=== PATIENT | male | born 1975 | race Hispanic/Latino ===

== ENCOUNTER 2020-04-10 16:18 | Inpatient (IN) | payer MEDICAID, OTHER ==
[~2020-04-10] VITALS: Ht 182.9 cm; Wt 101.2 kg
[2020-04-10 16:48] LABS: APPEARANCE,URINE Cloudy (CLEAR); BILIRUBIN,URINE Negative (NEGATIVE); COLOR,URINE Yellow (YELLOW); GLUCOSE, URINE (UA) Negative (NEGATIVE); KETONES,URINE Negative (NEGATIVE); LEUKOCYTE ESTERASE ,URINE Negative (NEGATIVE); NITRATE,URINE Negative (NEGATIVE); OCCULT BLOOD,URINE Moderate (NEGATIVE); PROTEIN,URINE >=1000 mg/dL (NEGATIVE); UROBILINOGEN,URINE 0.2 mg/dL (0.2-1.0)
[2020-04-10 16:51] LABS: BASOPHILS % (AUTO) 0.8 % (0.0-5.0); HEMATOCRIT 25.9 % (42-54); LYMPHOCYTES % (AUTO) 23.3 % (21.0-51.0); MEAN CORPUSCULAR HEMOGLOBIN 28.1 pg (27.0-33.0); MEAN CORPUSCULAR HGB CONC 31.3 g/dL (32.0-36.0); MEAN CORPUSCULAR VOLUME 89.9 fL (79-99); MONOCYTES % (AUTO) 7.9 % (3.0-13.0); NEUTROPHILS % (AUTO) 62.6 % (40.0-77.0); PLATELET COUNT (AUTO) 248 K/uL (130-400); RED BLOOD CELL COUNT(AUTO) 2.88 MIL/uL (4.50-6.20); RED CELL DISTRIBUTION WIDTH 14.1 % (11.0-15.5)
[2020-04-10 16:55] LABS: AMPHET/METH SCREEN,URINE NEGATIVE (NEGATIVE); BARBITURATE SCREEN, URINE NEGATIVE (NEGATIVE); BENZODIAZEPINES SCREEN,URINE NEGATIVE (NEGATIVE); CANNABINOID SCREEN,URINE NEGATIVE (NEGATIVE); COCAINE SCREEN,URINE POSITIVE (NEGATIVE); OPIATE SCREEN,URINE NEGATIVE (NEGATIVE); PHENCYCLIDINE SCREEN,URINE NEGATIVE (NEGATIVE)
[2020-04-10 17:18] LABS: BACTERIA,URINE Few /HPF (None Seen)
[2020-04-10 17:19] LABS: AMORPHOUS SEDIMENT,UR Many /LPF (None Seen); MUCUS,URINE Few LPF (None Seen); SQUAMOUS EPITHELIAL CELL,UR Few /HPF (0-2)
[2020-04-10 17:20] LABS: ACETAMINOPHEN < 1 mcg/mL (10-29); ALANINE AMINOTRANSFERASE 17 U/L (12-78); ALBUMIN 3.1 g/dL (3.5-5.0); ALCOHOL, BLOOD < 3 mg/dL (0-10); ASPARTATE AMINOTRANSFERASE 20 U/L (10-37); BILIRUBIN,TOTAL 0.6 mg/dL (0.2-1.0); CARBON DIOXIDE 12 mmol/L (21-32); CHLORIDE 106 mmol/L (101-111); GLOMERULAR FILTR. RATE CALC 6 mL/min (>60); GLUCOSE,RANDOM 103 mg/dL (70-105); SALICYLATE < 2.8 mg/dL (2.8-20.0); SODIUM SERUM 136 mmol/L (136-145); TOTAL PROTEIN, SERUM 8.7 g/dL (6.0-8.3); UREA NITROGEN, BLOOD 62 mg/dL (7-18)
[2020-04-10 17:22] LABS: CREATININE 9.8 mg/dL (0.5-1.5); POTASSIUM 6.1 mmol/L (3.5-5.1)
[2020-04-10] MEDS ORDERED: INSULIN HUMULIN R 100 UNIT/ML 3ML ONE (17:50)
[2020-04-10] MEDS ORDERED: SODIUM BICARB 50MEQ 50ML VIAL 50 ML ONE (17:52)
[2020-04-10] MEDS ORDERED: DEXTROSE 50%-WATER 50 ML DISP.SYRIN IV ONE ×2 (17:52→20:41)
[2020-04-10] MEDS ORDERED: HYDRALAZINE HCL 20 MG/ML VIAL ONE (18:48)
[2020-04-10] MEDS ORDERED: SODIUM POLYSTYRENE SULFONATE 15 GM/60 ML ML ONE (20:42)
[2020-04-11] VITALS (10 sets, daily range): BP systolic 135–174; BP diastolic 79–103
[2020-04-11] MEDS ORDERED: CLONIDINE HCL 0.1 MG TABLET PO PRN (05:00)
[2020-04-11] MEDS ORDERED: DEXTROSE 50%-WATER 50 ML DISP.SYRIN IV PRN (05:00)
[2020-04-11] MEDS ORDERED: GLUCAGON 1MG KIT 1 MG ML IM PRN (05:00)
[2020-04-11 05:48] LABS: BASOPHILS % (AUTO) 0.9 % (0.0-5.0); EOSINOPHILS % (AUTO) 4.7 % (0.0-8.0); HEMATOCRIT 24.3 % (42-54); MEAN CORPUSCULAR HGB CONC 31.3 g/dL (32.0-36.0); MEAN CORPUSCULAR VOLUME 89.7 fL (79-99); MONOCYTES % (AUTO) 6.9 % (3.0-13.0); NEUTROPHILS % (AUTO) 64.1 % (40.0-77.0); PLATELET COUNT (AUTO) 246 K/uL (130-400); RED BLOOD CELL COUNT(AUTO) 2.71 MIL/uL (4.50-6.20); WHITE BLOOD COUNT (AUTO) 7.7 K/uL (4.8-10.8)
[2020-04-11 06:04] LABS: MAGNESIUM 2.1 mg/dL (1.80-2.40)
[2020-04-11 06:05] LABS: CREATININE 9.8 mg/dL (0.5-1.5)
[2020-04-11 14:43] LABS: INR 1.01 (0.85-1.15)
[2020-04-11 14:45] LABS: PARTIAL THROMBOPLASTIN TIME 26.3 SEC (26.3-35.5)
[2020-04-11] MEDS ORDERED: LIDOCAINE HCL 1% MDV 50ML VIAL ONE (14:59)
[2020-04-11] MEDS ORDERED: HEPARIN SODIUM 5000UNIT/ML 1ML VIAL ONE (18:54)
[2020-04-11] MEDS ORDERED: NITROGLYCERIN 0.4 MG SL TAB SL PRN (19:00)
[2020-04-11] MEDS ORDERED: SODIUM CHLORIDE 0.9% 1000ML 1,000 ML IV PRN (19:00)
[2020-04-11] MEDS ORDERED: ACETAMINOPHEN 325 MG TAB PO PRN (19:00)
[2020-04-11] MEDS ORDERED: LIDOCAINE HCL-MPF 1% 2ML VIAL IJ PRN (19:00)
[2020-04-11] MEDS ORDERED: HEPARIN SODIUM 5000UNIT/ML 1ML VIAL IJ PRN (19:00)
[2020-04-11] MEDS ORDERED: 0.9% SODIUM CHLORIDE 1000 ML IV BAG IV PRN (19:00)
[2020-04-11] MEDS: LORAZEPAM 2 MG/ML 1 ML VIAL IVP PRN (22:40)
[2020-04-12 04:05] VITALS: BP 147/88
[2020-04-12] MEDS: LORAZEPAM 2 MG/ML 1 ML VIAL IVP PRN (04:44)
[2020-04-12 06:06] LABS: CREATININE 7.8 mg/dL (0.5-1.5); POTASSIUM 5.3 mmol/L (3.5-5.1)
[2020-04-12 10:18] VITALS: BP 124/73
[2020-04-12] MEDS ORDERED: LORAZEPAM 2 MG TABLET PO PRN (10:45)
[2020-04-12 12:20] VITALS: BP 157/91
[2020-04-12 17:26] VITALS: BP 136/77
[2020-04-12 20:16] VITALS: BP 145/83
[2020-04-12] MEDS: TRAZODONE HCL 50 MG TAB PO SCH (20:41)
[2020-04-12] MEDS: ARIPIPRAZOLE 5 MG TABLET PO SCH (20:41)
[2020-04-13 00:16] VITALS: BP 153/89
[2020-04-13 04:16] VITALS: BP 137/87
[2020-04-13 08:32] VITALS: BP 143/89
[2020-04-13] MEDS: ARIPIPRAZOLE 5 MG TABLET PO SCH ×2 (08:53→20:48)
[2020-04-13 17:38] VITALS: BP 135/74
[2020-04-13 20:00] VITALS: BP 143/74
[2020-04-13] MEDS: TRAZODONE HCL 50 MG TAB PO SCH (20:48)
[2020-04-13 23:32] VITALS: BP 133/80
[2020-04-14 04:00] VITALS: BP 156/94
[2020-04-14 05:43] LABS: CREATININE 7.1 mg/dL (0.5-1.5); MAGNESIUM 1.9 mg/dL (1.80-2.40); POTASSIUM 4.8 mmol/L (3.5-5.1)
[2020-04-14 06:27] LABS: MEAN CORPUSCULAR HGB CONC 31.7 g/dL (32.0-36.0); MEAN CORPUSCULAR VOLUME 88.1 fL (79-99); RED BLOOD CELL COUNT(AUTO) 2.61 MIL/uL (4.50-6.20); RED CELL DISTRIBUTION WIDTH 13.5 % (11.0-15.5); WHITE BLOOD COUNT (AUTO) 6.5 K/uL (4.8-10.8)
[2020-04-14 08:00] VITALS: BP 134/77
[2020-04-14] MEDS: ARIPIPRAZOLE 5 MG TABLET PO SCH (10:34)
[2020-04-14 12:02] VITALS: BP 142/85
[2020-04-15 15:13] LABS: HEPATITIS A ANTIBODY IGM Negative (Negative); HEPATITIS B CORE IGM Negative (Negative); HEPATITIS Bs ANTIGEN SCREEN P Negative (Negative)
== END 2020-04-14 16:10 | disposition home or self-care (01) | DRG 683 ==
LOC: EDH 16:18 → EDHIP 16:19 → OBSVTOIN 16:19 → 3AH 04-11 16:26
PROVIDERS: ADMIT Internal Medicine Infectious Disease; ATTEND Internal Medicine Infectious Disease
PROC: 02H633Z Insertion of Infusion Device into Right Atrium, Percutaneous Approach (ICD-10-PCS; principal; 2020-04-11)
PROC: B5181ZA Fluoroscopy of Superior Vena Cava using Low Osmolar Contrast, Guidance (ICD-10-PCS; 2020-04-11)
PROC: B548ZZA Ultrasonography of Superior Vena Cava, Guidance (ICD-10-PCS; 2020-04-11)
PROC: 5A1D70Z Performance of Urinary Filtration, Intermittent, Less than 6 Hours Per Day (ICD-10-PCS; 2020-04-11)
PROC: 5A1D70Z Performance of Urinary Filtration, Intermittent, Less than 6 Hours Per Day (ICD-10-PCS; 2020-04-12)
PROC: 5A1D70Z Performance of Urinary Filtration, Intermittent, Less than 6 Hours Per Day (ICD-10-PCS; 2020-04-14)
DX: N17.9 Acute kidney failure, unspecified (principal); G93.40 Encephalopathy, unspecified; I12.0 Hypertensive chronic kidney disease with stage 5 chronic kidney disease or end stage renal disease; N18.6 End stage renal disease; F14.10 Cocaine abuse, uncomplicated; F20.9 Schizophrenia, unspecified; F12.10 Cannabis abuse, uncomplicated; E11.22 Type 2 diabetes mellitus with diabetic chronic kidney disease; E66.9 Obesity, unspecified; E87.5 Hyperkalemia; Z91.14 Patient's other noncompliance with medication regimen; Z83.3 Family history of diabetes mellitus; Z91.19 Patient's noncompliance with other medical treatment and regimen; Z99.2 Dependence on renal dialysis; Z68.30 Body mass index [BMI] 30.0-30.9, adult
CPT/HCPCS: 36415; 36556; 77001; 80048; 80053; 80074; 80305; 81001; 82948; 83735; 85025; 85027; 85610; 85730; 90935; 93005; 99291; C1752; G0378; G0481; J0360; J1644; J1815; J2060; J3490; J7070

== ENCOUNTER 2020-09-01 10:30 | Observation (INO) | payer MEDICAID ==
[~2020-09-01] VITALS: Ht 185.4 cm; Wt 104.3 kg
[2020-09-01 10:47] VITALS: BP 159/87
[2020-09-01 11:12] LABS: BASOPHILS % (AUTO) 0.6 % (0.0-5.0); EOSINOPHILS % (AUTO) 3.8 % (0.0-8.0); HEMATOCRIT 29.1 % (42-54); LYMPHOCYTES % (AUTO) 23.2 % (21.0-51.0); MEAN CORPUSCULAR HEMOGLOBIN 28.9 pg (27.0-33.0); MEAN CORPUSCULAR HGB CONC 31.6 g/dL (32.0-36.0); MEAN CORPUSCULAR VOLUME 91.5 fL (79-99); MONOCYTES % (AUTO) 5.3 % (3.0-13.0); NEUTROPHILS % (AUTO) 66.6 % (40.0-77.0); NUCLEATED RED BLOOD CELLS 0.5 % (0.0-0.19); PLATELET COUNT (AUTO) 218 K/uL (130-400); RED BLOOD CELL COUNT(AUTO) 3.18 MIL/uL (4.50-6.20); RED CELL DISTRIBUTION WIDTH 15.2 % (11.0-15.5); WHITE BLOOD COUNT (AUTO) 7.9 K/uL (4.8-10.8)
[2020-09-01 11:32] LABS: ALBUMIN 3.4 g/dL (3.5-5.0); BILIRUBIN,TOTAL 0.5 mg/dL (0.2-1.0); POTASSIUM 5.6 mmol/L (3.5-5.1)
[2020-09-01 11:35] LABS: CREATININE 12.3 mg/dL (0.5-1.5)
[2020-09-01 12:11] LABS: TOTAL PROTEIN, SERUM 7.8 g/dL (6.0-8.3)
[2020-09-01] MEDS ORDERED: DEXTROSE 5 % AND 0.9 % NACL 1,000 ML IV ONE (15:02)
[2020-09-01] MEDS ORDERED: DIPHENHYDRAMINE HCL 25 MG CAPSULE ONE (15:12)
[2020-09-01 15:20] VITALS: BP 165/74
== END 2020-09-01 16:30 | disposition left against medical advice (07) ==
LOC: EDH 10:30 → EDBD 10:30 → EDHIP 10:31
PROVIDERS: ADMIT Internal Medicine Infectious Disease; ATTEND Internal Medicine Infectious Disease
DX: K85.90 Acute pancreatitis without necrosis or infection, unspecified (principal); I12.9 Hypertensive chronic kidney disease with stage 1 through stage 4 chronic kidney disease, or unspecified chronic kidney disease; N18.9 Chronic kidney disease, unspecified; E11.22 Type 2 diabetes mellitus with diabetic chronic kidney disease; E87.5 Hyperkalemia; F20.9 Schizophrenia, unspecified; R10.10 Upper abdominal pain, unspecified; M79.671 Pain in right foot; R06.02 Shortness of breath; Z79.899 Other long term (current) drug therapy; Z79.4 Long term (current) use of insulin
CPT/HCPCS: 36415; 74176; 76705; 80053; 82550 ×2; 83690; 84484 ×2; 85025; 93005; 99285; G0378 ×2; J3490; Q0163; J7042

== ENCOUNTER 2020-12-17 05:07 | Emergency (ER) | payer MEDICAID ==
[~2020-12-17] VITALS: Ht 185.4 cm; Wt 104.3 kg
[2020-12-17] MEDS ORDERED: HYDR25CA PO (05:43)
[2020-12-17] MEDS ORDERED: DiphenhydrAMINE HCL 50 MG/ML VIAL ONE (05:51)
[2020-12-17 05:57] VITALS: BP 151/89
[2020-12-17] MEDS ORDERED: DiphenhydrAMINE HCL 50 MG/ML VIAL IM ONE (06:00)
== END 2020-12-17 06:02 | disposition home or self-care (01) ==
LOC: EDH 05:07
DX: F41.9 Anxiety disorder, unspecified (principal); F45.8 Other somatoform disorders; I12.0 Hypertensive chronic kidney disease with stage 5 chronic kidney disease or end stage renal disease; E11.22 Type 2 diabetes mellitus with diabetic chronic kidney disease; N18.6 End stage renal disease; Z99.2 Dependence on renal dialysis
CPT/HCPCS: 96372; 99283; J1200

== ENCOUNTER 2021-01-10 08:02 | Inpatient (IN) | payer MEDICAID ==
[~2021-01-10] VITALS: Ht 170.2 cm; Wt 98.9 kg
[2021-01-10] VITALS (58 sets, daily range): BP systolic 120–187; BP diastolic 62–119
[~2021-01-10 08:02] MED LIST: HYDR25CA PO
[2021-01-10] MEDS ORDERED: AMIODARONE 150MG VIAL ONE (08:13)
[2021-01-10 08:18] LABS: ABG BASE EXCESS -23.7 mmol/L (-2.0-3.0); ABG HCO3 9.5 mmol/L (21.0-28.0); ABG OXYGEN SATURATION 72.7 % (95.0-99.0); ABG PCO2 51 mmHg (35-48)
[2021-01-10] MEDS ORDERED: NOREPINEPHRIN 4MG/NS 250ML 250 ML IV ONE (08:24)
[2021-01-10] MEDS ORDERED: AMIODARONE 540 MG/D5W 300ML (0.5MG/MIN) IV SCH ×2 (08:30)
[2021-01-10] MEDS ORDERED: AMIODARONE 150MG VIAL 150 MG in DEXTROSE 5%-WATER 100 ML IV SCH (08:30)
[2021-01-10] MEDS ORDERED: AMIODARONE 900MG VIAL 360 MG in DEXTROSE 5%-WATER 200 ML IV SCH (08:30)
[2021-01-10] MEDS ORDERED: PROPOFOL 1000 MG/100 ML 100 ML IV ONE ×2 (08:33→15:24)
[2021-01-10 08:45] LABS: BASOPHILS % (AUTO) 0.2 % (0.0-5.0); EOSINOPHILS % (AUTO) 0.3 % (0.0-8.0); HEMATOCRIT 37.2 % (42-54); LYMPHOCYTES % (AUTO) 7.9 % (21.0-51.0); MEAN CORPUSCULAR HEMOGLOBIN 28.3 pg (27.0-33.0); MEAN CORPUSCULAR HGB CONC 30.9 g/dL (32.0-36.0); MEAN CORPUSCULAR VOLUME 91.6 fL (79-99); MONOCYTES % (AUTO) 2.4 % (3.0-13.0); NEUTROPHILS % (AUTO) 88.7 % (40.0-77.0); NUCLEATED RED BLOOD CELLS 0.6 % (0.0-0.19); PLATELET COUNT (AUTO) 240 K/uL (130-400); RED BLOOD CELL COUNT(AUTO) 4.06 MIL/uL (4.50-6.20); RED CELL DISTRIBUTION WIDTH 18.1 % (11.0-15.5); WHITE BLOOD COUNT (AUTO) 8.8 K/uL (4.8-10.8)
[2021-01-10] MEDS ORDERED: SODIUM BICARB 50MEQ 50ML VIAL 100 ML ONE (08:46)
[2021-01-10] MEDS ORDERED: DEXTROSE 50%-WATER 50 ML DISP.SYRIN IV ONE ×2 (08:47→12:25)
[2021-01-10] MEDS ORDERED: INSULIN HUMULIN R 100 UNIT/ML 3ML ONE (08:47)
[2021-01-10] MEDS ORDERED: KAYEXALATE 15GM/60ML ONE (08:48)
[2021-01-10 08:59] LABS: B-TYPE NATRIURETIC PEPTIDE 1370 pg/mL (0-100)
[2021-01-10] MEDS: SODIUM BICARB 8.4% 50ML SYRINGE IVP SCH (09:00)
[2021-01-10] MEDS ORDERED: PHARMACY COMMUNICATION MISC SCH ×2 (09:00→09:30)
[2021-01-10 09:20] LABS: ALBUMIN 3.5 g/dL (3.5-5.0); BILIRUBIN,TOTAL 1.1 mg/dL (0.2-1.0); MAGNESIUM 3.4 mg/dL (1.80-2.40); TOTAL PROTEIN, SERUM 7.2 g/dL (6.0-8.3)
[2021-01-10 09:25] LABS: CREATININE 19.2 mg/dL (0.5-1.5); POTASSIUM 8.9 mmol/L (3.5-5.1)
[2021-01-10] MEDS: NA ZIRCON CYCLOSIL(LOKELMA 10GM) PO NR (09:30)
[2021-01-10] MEDS: MIDAZOLAM 100MG-0.9% NS 100ML 100ML BAG IV SCH (09:30)
[2021-01-10] MEDS ORDERED: FENTANYL 2500MCG+NS 250ML IV.SOLN IV SCH (09:30)
[2021-01-10] MEDS ORDERED: VANCOMYCIN PROTOCOL PER PHARMACY IV SCH (09:30)
[2021-01-10] MEDS ORDERED: VASOPRESSIN 40 UNITS in 0.9%NACL 50ML 40 ML IV SCH (09:30)
[2021-01-10] MEDS ORDERED: 0.9%NACL 1000ML 2,000 ML IV ONE (09:49)
[2021-01-10] MEDS ORDERED: COMPOUND IV REFRIGERATED 1 EACH IVSOLN MISC PRN (10:00)
[2021-01-10] MEDS: ZOSYN 3.375GM+NS 50ML 50 ML IV SCH ×2 (10:00→21:42)
[2021-01-10] MEDS ORDERED: VANCOMYCIN 1.25GM/NS 250ML IVPB SCH ×2 (10:00)
[2021-01-10 10:51] LABS: ABG HCO3 15.8 mmol/L (21.0-28.0); ABG OXYGEN SATURATION 82.9 % (95.0-99.0); ABG PCO2 53 mmHg (35-48)
[2021-01-10] MEDS: NACL 23.4% (4MEQ/ML) 30ML VIAL 154 MEQ in DEXTROSE 10%-WATER 961.5 ML IV SCH (13:00)
[2021-01-10 13:02] LABS: ABG BASE EXCESS -3.4 mmol/L (-2.0-3.0); ABG OXYGEN SATURATION 79.3 % (95.0-99.0); ABG PCO2 46 mmHg (35-48)
[2021-01-10] MEDS ORDERED: HEPARIN 5,000 UNIT VIAL ONE (13:23)
[2021-01-10] MEDS ORDERED: HEPARIN 5,000 UNIT VIAL SQ PRN (13:30)
[2021-01-10 15:52] LABS: MAGNESIUM 2.5 mg/dL (1.80-2.40); PHOSPHORUS 11.1 mg/dL (2.5-4.9); POTASSIUM 5.7 mmol/L (3.5-5.1)
[2021-01-10 15:56] LABS: CREATININE 12.6 mg/dL (0.5-1.5)
[2021-01-10 18:39] LABS: ABG BASE EXCESS -5.6 mmol/L (-2.0-3.0); ABG HCO3 16.8 mmol/L (21.0-28.0); ABG OXYGEN SATURATION 99.5 % (95.0-99.0); ABG PCO2 24 mmHg (35-48)
[2021-01-11] VITALS (23 sets, daily range): BP systolic 108–137; BP diastolic 72–89
[2021-01-11] MEDS: MIDAZOLAM 100MG-0.9% NS 100ML 100ML BAG IV SCH (02:48)
[2021-01-11 05:41] LABS: INR 1.31 (0.85-1.15); PROTHROMBIN TIME 13.9 SEC (9.6-11.6)
[2021-01-11 05:42] LABS: PARTIAL THROMBOPLASTIN TIME 33.3 SEC (26.3-35.5)
[2021-01-11 06:27] LABS: BASOPHILS % (AUTO) 0.6 % (0.0-5.0); EOSINOPHILS % (AUTO) 1.8 % (0.0-8.0); HEMATOCRIT 33.9 % (42-54); LYMPHOCYTES % (AUTO) 8.9 % (21.0-51.0); MEAN CORPUSCULAR HEMOGLOBIN 28.6 pg (27.0-33.0); MEAN CORPUSCULAR HGB CONC 31.9 g/dL (32.0-36.0); MEAN CORPUSCULAR VOLUME 89.9 fL (79-99); MONOCYTES % (AUTO) 4.2 % (3.0-13.0); PLATELET COUNT (AUTO) 171 K/uL (130-400); RED BLOOD CELL COUNT(AUTO) 3.77 MIL/uL (4.50-6.20); WHITE BLOOD COUNT (AUTO) 6.7 K/uL (4.8-10.8)
[2021-01-11 06:36] LABS: ALBUMIN 2.8 g/dL (3.5-5.0); BILIRUBIN,TOTAL 0.8 mg/dL (0.2-1.0); POTASSIUM 5.1 mmol/L (3.5-5.1)
[2021-01-11 06:40] LABS: CREATININE 14.1 mg/dL (0.5-1.5)
[2021-01-11] MEDS: NA ZIRCON CYCLOSIL(LOKELMA 10GM) PO NR (07:18)
[2021-01-11] MEDS: SODIUM BICARB 8.4% 50ML SYRINGE IVP SCH (07:18)
[2021-01-11] MEDS: NACL 23.4% (4MEQ/ML) 30ML VIAL 154 MEQ in DEXTROSE 10%-WATER 961.5 ML IV SCH (10:02)
[2021-01-11] MEDS: ZOSYN 3.375GM+NS 50ML 50 ML IV SCH ×2 (10:04→21:43)
[2021-01-11] MEDS ORDERED: DEXTROSE 50%-WATER 50 ML DISP.SYRIN IV ONE (10:26)
[2021-01-11] MEDS: DEXTROSE 50%-WATER 50 ML DISP.SYRIN IV PRN (10:28)
[2021-01-11 11:09] LABS: ABG BASE EXCESS -6.2 mmol/L (-2.0-3.0); ABG HCO3 18.9 mmol/L (21.0-28.0); ABG OXYGEN SATURATION 95.5 % (95.0-99.0); ABG PCO2 36 mmHg (35-48)
[2021-01-11 12:24] LABS: APPEARANCE,URINE Clear (CLEAR); BILIRUBIN,URINE Negative (NEGATIVE); COLOR,URINE Yellow (YELLOW); GLUCOSE, URINE (UA) TRACE mg/dL (NEGATIVE); KETONES,URINE Negative (NEGATIVE); LEUKOCYTE ESTERASE ,URINE Moderate (NEGATIVE); NITRATE,URINE Negative (NEGATIVE); OCCULT BLOOD,URINE Moderate (NEGATIVE); PROTEIN,URINE >=1000 mg/dL (NEGATIVE); UROBILINOGEN,URINE 0.2 mg/dL (0.2-1.0)
[2021-01-11 12:32] LABS: AMPHET/METH SCREEN,URINE NEGATIVE (NEGATIVE); BARBITURATE SCREEN, URINE NEGATIVE (NEGATIVE); BENZODIAZEPINES SCREEN,URINE POSITIVE (NEGATIVE); CANNABINOID SCREEN,URINE NEGATIVE (NEGATIVE); COCAINE SCREEN,URINE POSITIVE (NEGATIVE); OPIATE SCREEN,URINE NEGATIVE (NEGATIVE); PHENCYCLIDINE SCREEN,URINE NEGATIVE (NEGATIVE)
[2021-01-11 12:42] LABS: BACTERIA,URINE Many /HPF (None Seen); WBC,URINE 51-100 /HPF (0-1)
[2021-01-11 13:09] LABS: HEPATITIS Bs ANTIGEN SCREEN P Negative (Negative)
[2021-01-11] MEDS: HEPARIN 5,000 UNIT VIAL SQ SCH ×2 (13:37→21:44)
[2021-01-11] MEDS ORDERED: PROPOFOL 1000 MG/100 ML IV PRN (15:30)
[2021-01-12] VITALS (35 sets, daily range): BP systolic 121–153; BP diastolic 75–97
[2021-01-12 04:29] LABS: BASOPHILS % (AUTO) 0.6 % (0.0-5.0); EOSINOPHILS % (AUTO) 2.4 % (0.0-8.0); HEMATOCRIT 35.1 % (42-54); LYMPHOCYTES % (AUTO) 14.8 % (21.0-51.0); MEAN CORPUSCULAR HEMOGLOBIN 28.1 pg (27.0-33.0); MEAN CORPUSCULAR HGB CONC 30.8 g/dL (32.0-36.0); MEAN CORPUSCULAR VOLUME 91.2 fL (79-99); MONOCYTES % (AUTO) 6.1 % (3.0-13.0); NEUTROPHILS % (AUTO) 75.5 % (40.0-77.0); PLATELET COUNT (AUTO) 170 K/uL (130-400); RED BLOOD CELL COUNT(AUTO) 3.85 MIL/uL (4.50-6.20); WHITE BLOOD COUNT (AUTO) 7.1 K/uL (4.8-10.8)
[2021-01-12 04:50] LABS: ALBUMIN 2.7 g/dL (3.5-5.0); BILIRUBIN,TOTAL 0.7 mg/dL (0.2-1.0); MAGNESIUM 2.5 mg/dL (1.80-2.40); POTASSIUM 5.5 mmol/L (3.5-5.1); TOTAL PROTEIN, SERUM 6.2 g/dL (6.0-8.3)
[2021-01-12 04:54] LABS: CREATININE 15.3 mg/dL (0.5-1.5)
[2021-01-12] MEDS: NACL 23.4% (4MEQ/ML) 30ML VIAL 154 MEQ in DEXTROSE 10%-WATER 961.5 ML IV SCH ×2 (05:01→19:33)
[2021-01-12] MEDS: HEPARIN 5,000 UNIT VIAL SQ SCH ×3 (05:04→20:57)
[2021-01-12 05:12] LABS: PHOSPHORUS 12.4 mg/dL (2.5-4.9)
[2021-01-12 06:26] LABS: ABG BASE EXCESS -5.7 mmol/L (-2.0-3.0); ABG HCO3 18.2 mmol/L (21.0-28.0); ABG OXYGEN SATURATION 98.2 % (95.0-99.0); ABG PCO2 31 mmHg (35-48)
[2021-01-12] MEDS: PANTOPRAZOLE 40 MG/VIAL IVP SCH (08:33)
[2021-01-12] MEDS: SEVELAMER HCL 800 MG TABLET PO SCH ×3 (08:33→17:06)
[2021-01-12] MEDS: DEXMEDETOMIDINE 400MCG/NS100ML IV SCH ×3 (08:34→20:59)
[2021-01-12] MEDS ORDERED: NOREPINEPHRINE 8MG/NS 250ML PREMIX IV SCH (09:00)
[2021-01-12] MEDS ORDERED: 0.9%NACL 1000ML 2,000 ML IV ONE (09:30)
[2021-01-12] MEDS: METOCLOPRAMIDE 10 MG/2 ML VIAL IVP SCH ×2 (13:44→20:55)
[2021-01-13] VITALS (21 sets, daily range): BP systolic 142–179; BP diastolic 88–119
[2021-01-13] MEDS: DEXMEDETOMIDINE 400MCG/NS100ML IV SCH ×3 (01:19→20:13)
[2021-01-13 05:30] LABS: BASOPHILS % (AUTO) 0.6 % (0.0-5.0); EOSINOPHILS % (AUTO) 1.5 % (0.0-8.0); HEMATOCRIT 36.2 % (42-54); LYMPHOCYTES % (AUTO) 13.2 % (21.0-51.0); MEAN CORPUSCULAR HEMOGLOBIN 27.8 pg (27.0-33.0); MEAN CORPUSCULAR HGB CONC 30.7 g/dL (32.0-36.0); MEAN CORPUSCULAR VOLUME 90.5 fL (79-99); MONOCYTES % (AUTO) 6.8 % (3.0-13.0); NEUTROPHILS % (AUTO) 77.5 % (40.0-77.0); PLATELET COUNT (AUTO) 160 K/uL (130-400); RED CELL DISTRIBUTION WIDTH 17.4 % (11.0-15.5); WHITE BLOOD COUNT (AUTO) 6.9 K/uL (4.8-10.8)
[2021-01-13] MEDS: METOCLOPRAMIDE 10 MG/2 ML VIAL IVP SCH (05:31)
[2021-01-13] MEDS: HEPARIN 5,000 UNIT VIAL SQ SCH ×3 (05:33→20:14)
[2021-01-13 05:47] LABS: ALBUMIN 2.8 g/dL (3.5-5.0); BILIRUBIN,TOTAL 0.7 mg/dL (0.2-1.0); POTASSIUM 4.8 mmol/L (3.5-5.1); TOTAL PROTEIN, SERUM 6.8 g/dL (6.0-8.3)
[2021-01-13 06:00] LABS: CREATININE 11.6 mg/dL (0.5-1.5)
[2021-01-13] MEDS: SEVELAMER HCL 800 MG TABLET PO SCH ×3 (08:00→17:00)
[2021-01-13] MEDS ORDERED: METOCLOPRAMIDE 10 MG/2 ML VIAL IVP PRN (09:00)
[2021-01-13 09:11] LABS: THYROID STIMULATING HORMONE 3.55 uIU/mL (0.36-3.74)
[2021-01-13] MEDS: PANTOPRAZOLE 40 MG/VIAL IVP SCH (10:47)
[2021-01-13] MEDS: ASPIRIN 81 MG EC TAB PO SCH (10:47)
[2021-01-13] MEDS: METOPROLOL TARTRATE 25 MG TAB PO SCH ×2 (10:48→20:14)
[2021-01-13] MEDS: ATORVASTATIN 40 MG TABLET PO SCH (20:14)
[2021-01-14] VITALS (49 sets, daily range): BP systolic 143–194; BP diastolic 82–119
[2021-01-14] MEDS: DEXMEDETOMIDINE 400MCG/NS100ML IV SCH ×2 (04:39→20:22)
[2021-01-14] MEDS: HEPARIN 5,000 UNIT VIAL SQ SCH ×3 (04:42→21:33)
[2021-01-14 06:19] LABS: BASOPHILS % (AUTO) 0.4 % (0.0-5.0); EOSINOPHILS % (AUTO) 2.2 % (0.0-8.0); HEMATOCRIT 36.3 % (42-54); LYMPHOCYTES % (AUTO) 16.7 % (21.0-51.0); MEAN CORPUSCULAR HEMOGLOBIN 27.4 pg (27.0-33.0); MEAN CORPUSCULAR HGB CONC 29.8 g/dL (32.0-36.0); MEAN CORPUSCULAR VOLUME 92.1 fL (79-99); MONOCYTES % (AUTO) 8.1 % (3.0-13.0); NEUTROPHILS % (AUTO) 71.9 % (40.0-77.0); PLATELET COUNT (AUTO) 169 K/uL (130-400); RED BLOOD CELL COUNT(AUTO) 3.94 MIL/uL (4.50-6.20); WHITE BLOOD COUNT (AUTO) 7.3 K/uL (4.8-10.8)
[2021-01-14 06:30] LABS: ALBUMIN 2.8 g/dL (3.5-5.0); BILIRUBIN,TOTAL 0.6 mg/dL (0.2-1.0); POTASSIUM 4.9 mmol/L (3.5-5.1); TOTAL PROTEIN, SERUM 6.9 g/dL (6.0-8.3)
[2021-01-14 06:32] LABS: CREATININE 13.5 mg/dL (0.5-1.5)
[2021-01-14] MEDS: PANTOPRAZOLE 40 MG/VIAL IVP SCH (08:33)
[2021-01-14] MEDS: ASPIRIN 81 MG EC TAB PO SCH (08:33)
[2021-01-14] MEDS: SEVELAMER HCL 800 MG TABLET PO SCH ×3 (08:33→17:00)
[2021-01-14] MEDS: METOPROLOL TARTRATE 25 MG TAB PO SCH ×2 (08:33→21:00)
[2021-01-14] MEDS ORDERED: RACEPINEPHRINE HCL 2.25% 0.5 ML NEB SOLN ONE (09:12)
[2021-01-14] MEDS ORDERED: RACEPINEPHRINE HCL 2.25% 0.5 ML NEB SOLN NEB SCH (09:30)
[2021-01-14] MEDS ORDERED: IPRATROPIUM/ALBUTEROL SULFATE 3 ML SOLUTION IH PRN (09:30)
[2021-01-14] MEDS ORDERED: LABETALOL 20MG SYG IV ONE (12:00)
[2021-01-14] MEDS: ATORVASTATIN 40 MG TABLET PO SCH (21:00)
[2021-01-14] MEDS: DEXTROSE 50%-WATER 50 ML DISP.SYRIN IV PRN (21:32)
[2021-01-14] MEDS ORDERED: PHARMACY COMMUNICATION MISC SCH ×2 (22:00)
[2021-01-14] MEDS: NACL 23.4% (4MEQ/ML) 30ML VIAL 154 MEQ in DEXTROSE 10%-WATER 961.5 ML IV SCH (22:08)
[2021-01-15] VITALS (24 sets, daily range): BP systolic 133–172; BP diastolic 78–111
[2021-01-15] MEDS: DEXMEDETOMIDINE 400MCG/NS100ML IV SCH (03:50)
[2021-01-15 06:18] LABS: BASOPHILS % (AUTO) 0.5 % (0.0-5.0); EOSINOPHILS % (AUTO) 4.5 % (0.0-8.0); HEMATOCRIT 36.4 % (42-54); LYMPHOCYTES % (AUTO) 13.8 % (21.0-51.0); MEAN CORPUSCULAR HEMOGLOBIN 27.9 pg (27.0-33.0); MEAN CORPUSCULAR HGB CONC 30.8 g/dL (32.0-36.0); MEAN CORPUSCULAR VOLUME 90.5 fL (79-99); MONOCYTES % (AUTO) 8.7 % (3.0-13.0); NEUTROPHILS % (AUTO) 72.3 % (40.0-77.0); PLATELET COUNT (AUTO) 166 K/uL (130-400); RED BLOOD CELL COUNT(AUTO) 4.02 MIL/uL (4.50-6.20); RED CELL DISTRIBUTION WIDTH 16.3 % (11.0-15.5)
[2021-01-15 06:29] LABS: POTASSIUM 4.1 mmol/L (3.5-5.1)
[2021-01-15 06:31] LABS: CREATININE 10.8 mg/dL (0.5-1.5)
[2021-01-15] MEDS: SEVELAMER HCL 800 MG TABLET PO SCH ×3 (08:00→14:41)
[2021-01-15] MEDS: PANTOPRAZOLE 40 MG/VIAL IVP SCH (08:38)
[2021-01-15] MEDS ORDERED: HEPARIN 5,000 UNIT VIAL SQ SCH (09:00)
[2021-01-15] MEDS: ASPIRIN 81 MG EC TAB PO SCH (14:45)
[2021-01-15] MEDS: LOSARTAN 25 MG TABLET PO SCH (14:46)
[2021-01-15] MEDS ORDERED: PHARMACY COMMUNICATION MISC PRN (15:00)
[2021-01-15] MEDS: CHLORDIAZEPOXIDE HCL 25 MG CAP PO PRN ×2 (15:59→20:17)
[2021-01-15] MEDS: HEPARIN 5,000 UNIT VIAL SQ SCH (16:16)
[2021-01-15] MEDS: NACL 23.4% (4MEQ/ML) 30ML VIAL 154 MEQ in DEXTROSE 10%-WATER 961.5 ML IV SCH (16:20)
[2021-01-15] MEDS: ATORVASTATIN 40 MG TABLET PO SCH (20:17)
[2021-01-15] MEDS: BALSAM PERU/CASTOR OIL 60 GM TUBE TP SCH (20:17)
[2021-01-15] MEDS ORDERED: METOPROLOL TARTRATE 25 MG TAB PO SCH (21:00)
[2021-01-16] VITALS (37 sets, daily range): BP systolic 116–167; BP diastolic 66–111
[2021-01-16] MEDS: HEPARIN 5,000 UNIT VIAL SQ SCH ×3 (01:40→12:50)
[2021-01-16 04:26] LABS: BASOPHILS % (AUTO) 0.6 % (0.0-5.0); EOSINOPHILS % (AUTO) 4.7 % (0.0-8.0); HEMATOCRIT 37.7 % (42-54); LYMPHOCYTES % (AUTO) 18.2 % (21.0-51.0); MEAN CORPUSCULAR HEMOGLOBIN 28.1 pg (27.0-33.0); MEAN CORPUSCULAR HGB CONC 30.2 g/dL (32.0-36.0); MEAN CORPUSCULAR VOLUME 93.1 fL (79-99); MONOCYTES % (AUTO) 9.7 % (3.0-13.0); NEUTROPHILS % (AUTO) 66.7 % (40.0-77.0); PLATELET COUNT (AUTO) 191 K/uL (130-400); RED BLOOD CELL COUNT(AUTO) 4.05 MIL/uL (4.50-6.20); RED CELL DISTRIBUTION WIDTH 16.4 % (11.0-15.5); WHITE BLOOD COUNT (AUTO) 6.8 K/uL (4.8-10.8)
[2021-01-16 04:43] LABS: ALBUMIN 2.9 g/dL (3.5-5.0); BILIRUBIN,TOTAL 0.7 mg/dL (0.2-1.0); TOTAL PROTEIN, SERUM 7.1 g/dL (6.0-8.3)
[2021-01-16 04:46] LABS: CREATININE 12.7 mg/dL (0.5-1.5)
[2021-01-16] MEDS ORDERED: PHARMACY COMMUNICATION MISC SCH (06:00)
[2021-01-16] MEDS: SEVELAMER HCL 800 MG TABLET PO SCH ×3 (08:00→16:33)
[2021-01-16] MEDS ORDERED: PANTOPRAZOLE 40 MG TAB DR PO SCH (09:00)
[2021-01-16] MEDS ORDERED: METOPROLOL TARTRATE 25 MG TAB PO SCH (09:00)
[2021-01-16] MEDS ORDERED: 0.9%NACL 1000ML 2,000 ML IV ONE (09:06)
[2021-01-16] MEDS: LANSOPRAZOLE 15 MG SOLU TAB NG SCH (09:34)
[2021-01-16] MEDS: THIAMINE HCL 100 MG TABLET PO SCH ×2 (09:34→21:26)
[2021-01-16] MEDS: DOCUSATE SODIUM 100 MG CAP PO SCH (09:35)
[2021-01-16] MEDS: SENNOSIDES 8.6 MG TABLET PO SCH (09:35)
[2021-01-16] MEDS: ASPIRIN 81 MG EC TAB PO SCH (09:35)
[2021-01-16] MEDS: POLYETHYLENE GLYCOL 3350 17 GM POWD.PACK PO SCH (09:35)
[2021-01-16] MEDS: BALSAM PERU/CASTOR OIL 60 GM TUBE TP SCH ×2 (09:44→21:29)
[2021-01-16] MEDS: NACL 23.4% (4MEQ/ML) 30ML VIAL 154 MEQ in DEXTROSE 10%-WATER 961.5 ML IV SCH (12:06)
[2021-01-16] MEDS: LOSARTAN 25 MG TABLET PO SCH (12:58)
[2021-01-16] MEDS: CARVEDILOL 12.5 MG TABLET PO SCH ×2 (12:59→21:25)
[2021-01-16] MEDS: ATORVASTATIN 40 MG TABLET PO SCH (21:25)
[2021-01-17] VITALS (17 sets, daily range): BP systolic 114–153; BP diastolic 66–101
[2021-01-17] MEDS: HEPARIN 5,000 UNIT VIAL SQ SCH ×3 (01:57→16:42)
[2021-01-17 03:58] LABS: BASOPHILS % (AUTO) 0.3 % (0.0-5.0); EOSINOPHILS % (AUTO) 3.8 % (0.0-8.0); HEMATOCRIT 39.7 % (42-54); LYMPHOCYTES % (AUTO) 12.3 % (21.0-51.0); MEAN CORPUSCULAR HEMOGLOBIN 27.1 pg (27.0-33.0); MEAN CORPUSCULAR VOLUME 90.4 fL (79-99); MONOCYTES % (AUTO) 7.3 % (3.0-13.0); PLATELET COUNT (AUTO) 215 K/uL (130-400); RED BLOOD CELL COUNT(AUTO) 4.39 MIL/uL (4.50-6.20); RED CELL DISTRIBUTION WIDTH 16.1 % (11.0-15.5); WHITE BLOOD COUNT (AUTO) 9.1 K/uL (4.8-10.8)
[2021-01-17 04:19] LABS: BILIRUBIN,TOTAL 0.7 mg/dL (0.2-1.0); POTASSIUM 4.1 mmol/L (3.5-5.1); TOTAL PROTEIN, SERUM 7.5 g/dL (6.0-8.3)
[2021-01-17] MEDS: NACL 23.4% (4MEQ/ML) 30ML VIAL 154 MEQ in DEXTROSE 10%-WATER 961.5 ML IV SCH (04:38)
[2021-01-17] MEDS: SEVELAMER HCL 800 MG TABLET PO SCH ×3 (08:00→17:00)
[2021-01-17] MEDS: LANSOPRAZOLE 15 MG SOLU TAB NG SCH (09:00)
[2021-01-17] MEDS: ASPIRIN 81 MG EC TAB PO SCH (09:00)
[2021-01-17] MEDS: POLYETHYLENE GLYCOL 3350 17 GM POWD.PACK PO SCH (09:00)
[2021-01-17] MEDS: SENNOSIDES 8.6 MG TABLET PO SCH (09:00)
[2021-01-17] MEDS: DOCUSATE SODIUM 100 MG CAP PO SCH (09:00)
[2021-01-17] MEDS: CARVEDILOL 12.5 MG TABLET PO SCH ×2 (16:38→19:55)
[2021-01-17] MEDS: THIAMINE HCL 100 MG TABLET PO SCH ×2 (16:39→20:01)
[2021-01-17] MEDS: BALSAM PERU/CASTOR OIL 60 GM TUBE TP SCH ×2 (16:40→21:00)
[2021-01-17] MEDS: ATORVASTATIN 40 MG TABLET PO SCH (19:55)
[2021-01-17] MEDS ORDERED: HYDRALAZINE HCL 10 MG TABLET PO SCH (21:00)
[2021-01-17] MEDS: CHLORDIAZEPOXIDE HCL 25 MG CAP PO PRN (21:54)
[2021-01-17] MEDS: LORAZEPAM 2 MG/ML 1 ML VIAL IVP PRN ×2 (22:34→22:54)
[2021-01-18] VITALS (9 sets, daily range): BP systolic 124–150; BP diastolic 72–87
[2021-01-18] MEDS: CHLORDIAZEPOXIDE HCL 25 MG CAP PO PRN (00:06)
[2021-01-18] MEDS: LORAZEPAM 2 MG/ML 1 ML VIAL IVP PRN ×4 (00:10→15:50)
[2021-01-18] MEDS ORDERED: HALOPERIDOL INJ 5 MG/ML VIAL IV SCH (00:30)
[2021-01-18] MEDS ORDERED: HALOPERIDOL INJ 5 MG/ML VIAL ONE (00:37)
[2021-01-18] MEDS: HEPARIN 5,000 UNIT VIAL SQ SCH ×3 (02:10→17:00)
[2021-01-18 07:24] LABS: MAGNESIUM 2.5 mg/dL (1.80-2.40); POTASSIUM 4.4 mmol/L (3.5-5.1)
[2021-01-18 07:28] LABS: CREATININE 12.6 mg/dL (0.5-1.5)
[2021-01-18] MEDS ORDERED: INSULIN HUMULIN R 100 UNIT/ML 3ML SQ SCH (07:30)
[2021-01-18] MEDS: SEVELAMER HCL 800 MG TABLET PO SCH ×3 (08:00→16:02)
[2021-01-18] MEDS: BALSAM PERU/CASTOR OIL 60 GM TUBE TP SCH ×2 (09:00→21:00)
[2021-01-18] MEDS: DOCUSATE SODIUM 100 MG CAP PO SCH (09:00)
[2021-01-18] MEDS: PANTOPRAZOLE 40 MG TAB DR PO SCH (09:00)
[2021-01-18] MEDS: SENNOSIDES 8.6 MG TABLET PO SCH (09:00)
[2021-01-18] MEDS: POLYETHYLENE GLYCOL 3350 17 GM POWD.PACK PO SCH (09:00)
[2021-01-18] MEDS ORDERED: LISINOPRIL 20 MG TABLET PO SCH (09:00)
[2021-01-18] MEDS: ASPIRIN 81 MG EC TAB PO SCH (09:27)
[2021-01-18] MEDS: ISOSORBIDE MONO 30MG SR TAB PO SCH (09:27)
[2021-01-18] MEDS: CLONAZEPAM 1MG TAB PO SCH ×2 (09:28→19:25)
[2021-01-18] MEDS: CARVEDILOL 12.5 MG TABLET PO SCH ×2 (09:28→19:27)
[2021-01-18] MEDS: THIAMINE HCL 100 MG TABLET PO SCH ×2 (09:30→19:26)
[2021-01-18] MEDS ORDERED: LORAZEPAM 2 MG/ML 1 ML VIAL IM ONE (18:00)
[2021-01-18] MEDS: ATORVASTATIN 40 MG TABLET PO SCH (19:26)
[2021-01-18] MEDS: HALOPERIDOL INJ 5 MG/ML VIAL IM PRN (19:26)
[2021-01-19] VITALS (7 sets, daily range): BP systolic 101–156; BP diastolic 56–96
[2021-01-19] MEDS: HEPARIN 5,000 UNIT VIAL SQ SCH ×3 (01:00→17:00)
[2021-01-19 08:23] LABS: BASOPHILS % (AUTO) 0.6 % (0.0-5.0); EOSINOPHILS % (AUTO) 4.8 % (0.0-8.0); HEMATOCRIT 39.4 % (42-54); LYMPHOCYTES % (AUTO) 15.8 % (21.0-51.0); MEAN CORPUSCULAR HEMOGLOBIN 27.7 pg (27.0-33.0); MEAN CORPUSCULAR HGB CONC 30.2 g/dL (32.0-36.0); MEAN CORPUSCULAR VOLUME 91.6 fL (79-99); MONOCYTES % (AUTO) 6.1 % (3.0-13.0); NEUTROPHILS % (AUTO) 72.4 % (40.0-77.0); PLATELET COUNT (AUTO) 219 K/uL (130-400); WHITE BLOOD COUNT (AUTO) 7.9 K/uL (4.8-10.8)
[2021-01-19 08:35] LABS: POTASSIUM 4.8 mmol/L (3.5-5.1)
[2021-01-19 08:36] LABS: ALBUMIN 3.1 g/dL (3.5-5.0); BILIRUBIN,TOTAL 0.5 mg/dL (0.2-1.0); TOTAL PROTEIN, SERUM 7.3 g/dL (6.0-8.3)
[2021-01-19 08:39] LABS: CREATININE 14.5 mg/dL (0.5-1.5)
[2021-01-19] MEDS: BALSAM PERU/CASTOR OIL 60 GM TUBE TP SCH ×2 (09:00→21:00)
[2021-01-19] MEDS: DOCUSATE SODIUM 100 MG CAP PO SCH (09:00)
[2021-01-19] MEDS: HYDRALAZINE HCL 10 MG TABLET PO SCH ×3 (09:00→21:00)
[2021-01-19] MEDS: POLYETHYLENE GLYCOL 3350 17 GM POWD.PACK PO SCH (09:00)
[2021-01-19] MEDS: THIAMINE HCL 100 MG TABLET PO SCH ×2 (09:00→21:00)
[2021-01-19] MEDS: SENNOSIDES 8.6 MG TABLET PO SCH (09:00)
[2021-01-19] MEDS ORDERED: GUAIFENESIN-DM 200/20 MG 10 ML PO PRN (10:00)
[2021-01-19] MEDS: SEVELAMER HCL 800 MG TABLET PO SCH ×3 (12:00→17:00)
[2021-01-19] MEDS: GUAIFENESIN-DM 200/20 MG 10 ML PO PRN (12:35)
[2021-01-19] MEDS: PANTOPRAZOLE 40 MG TAB DR PO SCH (12:36)
[2021-01-19] MEDS: ISOSORBIDE MONO 30MG SR TAB PO SCH (12:36)
[2021-01-19] MEDS: CLONAZEPAM 1MG TAB PO SCH ×2 (12:36→21:12)
[2021-01-19] MEDS: HALOPERIDOL INJ 5 MG/ML VIAL IM PRN ×2 (12:37→18:56)
[2021-01-19] MEDS: ASPIRIN 81 MG EC TAB PO SCH (12:37)
[2021-01-19] MEDS: ATORVASTATIN 40 MG TABLET PO SCH (21:00)
[2021-01-20] VITALS (17 sets, daily range): BP systolic 113–180; BP diastolic 70–99
[2021-01-20] MEDS: CLONAZEPAM 1MG TAB PO SCH ×3 (00:31→20:31)
[2021-01-20] MEDS: HEPARIN 5,000 UNIT VIAL SQ SCH ×3 (00:35→17:54)
[2021-01-20] MEDS: PANTOPRAZOLE 40 MG TAB DR PO SCH (08:22)
[2021-01-20] MEDS: SEVELAMER HCL 800 MG TABLET PO SCH ×3 (08:23→17:48)
[2021-01-20] MEDS: SENNOSIDES 8.6 MG TABLET PO SCH (08:24)
[2021-01-20] MEDS: POLYETHYLENE GLYCOL 3350 17 GM POWD.PACK PO SCH (08:24)
[2021-01-20] MEDS: DOCUSATE SODIUM 100 MG CAP PO SCH (08:28)
[2021-01-20] MEDS: BALSAM PERU/CASTOR OIL 60 GM TUBE TP SCH ×2 (09:00→20:32)
[2021-01-20] MEDS: HYDRALAZINE HCL 10 MG TABLET PO SCH ×3 (09:00→20:31)
[2021-01-20] MEDS: THIAMINE HCL 100 MG TABLET PO SCH ×2 (09:00→20:31)
[2021-01-20] MEDS: ISOSORBIDE MONO 30MG SR TAB PO SCH ×2 (09:00→14:39)
[2021-01-20 09:14] LABS: HEMATOCRIT 39.5 % (42-54); MEAN CORPUSCULAR HEMOGLOBIN 27.9 pg (27.0-33.0); MEAN CORPUSCULAR HGB CONC 30.6 g/dL (32.0-36.0); MEAN CORPUSCULAR VOLUME 91.2 fL (79-99); PLATELET COUNT (AUTO) 222 K/uL (130-400); RED BLOOD CELL COUNT(AUTO) 4.33 MIL/uL (4.50-6.20); RED CELL DISTRIBUTION WIDTH 15.9 % (11.0-15.5); WHITE BLOOD COUNT (AUTO) 7.9 K/uL (4.8-10.8)
[2021-01-20 09:30] LABS: POTASSIUM 4.7 mmol/L (3.5-5.1)
[2021-01-20 09:40] LABS: CREATININE 17.2 mg/dL (0.5-1.5)
[2021-01-20 09:53] LABS: EOSINOPHILS % (MANUAL) 4 % (1-6); LYMPHOCYTES % (MANUAL) 18 % (22-44); MAN.DIFF COMMENT-IMPRESSION MANUAL DIFFERENTIAL; MONOCYTES % (MANUAL) 9 % (2-9); PLATELET MORPHOLOGY COMMENT ADEQUATE; SEGMENTED NEUTROPHILS % 69 % (40-70)
[2021-01-20] MEDS: GUAIFENESIN-DM 200/20 MG 10 ML PO PRN (12:10)
[2021-01-20] MEDS: HALOPERIDOL INJ 5 MG/ML VIAL IM PRN ×2 (12:39→20:49)
[2021-01-20] MEDS: ASPIRIN 81 MG EC TAB PO SCH (17:48)
[2021-01-20] MEDS: ATORVASTATIN 40 MG TABLET PO SCH (20:31)
[2021-01-21] VITALS (17 sets, daily range): BP systolic 108–159; BP diastolic 53–86
[2021-01-21] MEDS: HEPARIN 5,000 UNIT VIAL SQ SCH ×3 (00:23→11:15)
[2021-01-21] MEDS: LORAZEPAM 2 MG/ML 1 ML VIAL IVP PRN ×3 (01:13→19:55)
[2021-01-21] MEDS: HALOPERIDOL INJ 5 MG/ML VIAL IM PRN (02:43)
[2021-01-21] MEDS: PANTOPRAZOLE 40 MG TAB DR PO SCH (06:59)
[2021-01-21] MEDS: SEVELAMER HCL 800 MG TABLET PO SCH ×3 (08:00→17:00)
[2021-01-21] MEDS: ISOSORBIDE MONO 30MG SR TAB PO SCH (09:00)
[2021-01-21] MEDS: DOCUSATE SODIUM 100 MG CAP PO SCH (09:00)
[2021-01-21] MEDS: ASPIRIN 81 MG EC TAB PO SCH (09:00)
[2021-01-21] MEDS: CLONAZEPAM 1MG TAB PO SCH ×2 (09:00→19:55)
[2021-01-21] MEDS: POLYETHYLENE GLYCOL 3350 17 GM POWD.PACK PO SCH (09:00)
[2021-01-21] MEDS: THIAMINE HCL 100 MG TABLET PO SCH ×2 (09:00→22:22)
[2021-01-21] MEDS: SENNOSIDES 8.6 MG TABLET PO SCH (09:00)
[2021-01-21] MEDS: HYDRALAZINE HCL 10 MG TABLET PO SCH ×3 (09:00→21:00)
[2021-01-21] MEDS: BALSAM PERU/CASTOR OIL 60 GM TUBE TP SCH ×2 (09:00→22:22)
[2021-01-21] MEDS: ATORVASTATIN 40 MG TABLET PO SCH (19:55)
[2021-01-21] MEDS: CHLORDIAZEPOXIDE HCL 25 MG CAP PO PRN (19:55)
[2021-01-21] MEDS: RISPERIDONE 1 MG TABLET PO SCH (19:55)
[2021-01-22] VITALS (9 sets, daily range): BP systolic 100–186; BP diastolic 73–103
[2021-01-22] MEDS: LORAZEPAM 2 MG/ML 1 ML VIAL IVP PRN (01:19)
[2021-01-22] MEDS: HEPARIN 5,000 UNIT VIAL SQ SCH ×3 (01:20→17:17)
[2021-01-22] MEDS: POLYETHYLENE GLYCOL 3350 17 GM POWD.PACK PO SCH (08:50)
[2021-01-22] MEDS: THIAMINE HCL 100 MG TABLET PO SCH ×2 (08:52→20:41)
[2021-01-22] MEDS: ZOSYN 3.375GM +NS 50ML IV SCH ×2 (08:54→18:25)
[2021-01-22] MEDS: RISPERIDONE 1 MG TABLET PO SCH ×2 (08:54→20:41)
[2021-01-22] MEDS: ISOSORBIDE MONO 30MG SR TAB PO SCH (08:54)
[2021-01-22] MEDS: SEVELAMER HCL 800 MG TABLET PO SCH ×3 (08:55→17:17)
[2021-01-22] MEDS: CLONAZEPAM 1MG TAB PO SCH ×2 (08:55→20:41)
[2021-01-22] MEDS: ASPIRIN 81 MG EC TAB PO SCH (08:56)
[2021-01-22] MEDS: DOCUSATE SODIUM 100 MG CAP PO SCH (08:56)
[2021-01-22] MEDS: SENNOSIDES 8.6 MG TABLET PO SCH (08:56)
[2021-01-22] MEDS: BALSAM PERU/CASTOR OIL 60 GM TUBE TP SCH ×2 (08:57→20:42)
[2021-01-22] MEDS: HYDRALAZINE HCL 10 MG TABLET PO SCH ×3 (08:57→20:41)
[2021-01-22] MEDS: PANTOPRAZOLE 40 MG TAB DR PO SCH (09:13)
[2021-01-22] MEDS: GUAIFENESIN-DM 200/20 MG 10 ML PO PRN (20:40)
[2021-01-22] MEDS: ATORVASTATIN 40 MG TABLET PO SCH (20:41)
[2021-01-23] MEDS: HEPARIN 5,000 UNIT VIAL SQ SCH ×3 (01:23→16:54)
[2021-01-23 03:17] VITALS: BP 115/72
[2021-01-23] MEDS: ZOSYN 3.375GM +NS 50ML IV SCH ×2 (05:15→21:36)
[2021-01-23 08:00] VITALS: BP 111/70
[2021-01-23] MEDS: CLONAZEPAM 1MG TAB PO SCH ×2 (09:44→21:37)
[2021-01-23] MEDS: POLYETHYLENE GLYCOL 3350 17 GM POWD.PACK PO SCH (09:44)
[2021-01-23] MEDS: THIAMINE HCL 100 MG TABLET PO SCH ×2 (09:45→21:37)
[2021-01-23] MEDS: DOCUSATE SODIUM 100 MG CAP PO SCH (09:45)
[2021-01-23] MEDS: ASPIRIN 81 MG EC TAB PO SCH (09:46)
[2021-01-23] MEDS: ISOSORBIDE MONO 30MG SR TAB PO SCH (09:46)
[2021-01-23] MEDS: BALSAM PERU/CASTOR OIL 60 GM TUBE TP SCH ×2 (09:46→21:38)
[2021-01-23] MEDS: HYDRALAZINE HCL 10 MG TABLET PO SCH ×3 (09:46→21:37)
[2021-01-23] MEDS: SENNOSIDES 8.6 MG TABLET PO SCH (09:46)
[2021-01-23] MEDS: RISPERIDONE 1 MG TABLET PO SCH ×2 (09:46→21:37)
[2021-01-23] MEDS: SEVELAMER HCL 800 MG TABLET PO SCH ×3 (10:01→16:53)
[2021-01-23] MEDS: PANTOPRAZOLE 40 MG TAB DR PO SCH (10:01)
[2021-01-23 12:00] VITALS: BP 139/78
[2021-01-23 16:00] VITALS: BP 124/73
[2021-01-23 19:48] VITALS: BP 105/70
[2021-01-23] MEDS: ATORVASTATIN 40 MG TABLET PO SCH (21:37)
[2021-01-24 00:45] VITALS: BP 135/113
[2021-01-24] MEDS: HEPARIN 5,000 UNIT VIAL SQ SCH ×3 (01:02→16:50)
[2021-01-24 03:36] VITALS: BP 112/65
[2021-01-24 08:00] VITALS: BP 123/87
[2021-01-24] MEDS: HYDRALAZINE HCL 10 MG TABLET PO SCH ×3 (09:15→20:18)
[2021-01-24] MEDS: ISOSORBIDE MONO 30MG SR TAB PO SCH (09:15)
[2021-01-24] MEDS: POLYETHYLENE GLYCOL 3350 17 GM POWD.PACK PO SCH (09:15)
[2021-01-24] MEDS: RISPERIDONE 1 MG TABLET PO SCH ×2 (09:16→20:18)
[2021-01-24] MEDS: SENNOSIDES 8.6 MG TABLET PO SCH (09:16)
[2021-01-24] MEDS: DOCUSATE SODIUM 100 MG CAP PO SCH (09:17)
[2021-01-24] MEDS: CLONAZEPAM 1MG TAB PO SCH ×2 (09:17→20:18)
[2021-01-24] MEDS: THIAMINE HCL 100 MG TABLET PO SCH ×2 (09:17→21:00)
[2021-01-24] MEDS: ASPIRIN 81 MG EC TAB PO SCH (09:17)
[2021-01-24] MEDS: ZOSYN 3.375GM +NS 50ML IV SCH ×2 (09:18→20:17)
[2021-01-24] MEDS: PANTOPRAZOLE 40 MG TAB DR PO SCH (09:19)
[2021-01-24] MEDS: BALSAM PERU/CASTOR OIL 60 GM TUBE TP SCH ×2 (09:19→21:00)
[2021-01-24] MEDS: SEVELAMER HCL 800 MG TABLET PO SCH ×3 (09:19→16:48)
[2021-01-24 12:00] VITALS: BP 128/80
[2021-01-24 16:00] VITALS: BP 143/83
[2021-01-24 20:00] VITALS: BP 143/89
[2021-01-24] MEDS: ATORVASTATIN 40 MG TABLET PO SCH (20:18)
[2021-01-25] VITALS (7 sets, daily range): BP systolic 108–149; BP diastolic 68–85
[2021-01-25] MEDS: HALOPERIDOL INJ 5 MG/ML VIAL IM PRN (00:30)
[2021-01-25] MEDS: HEPARIN 5,000 UNIT VIAL SQ SCH ×3 (01:07→17:36)
[2021-01-25] MEDS: ZOSYN 3.375GM +NS 50ML IV SCH ×2 (08:24→18:44)
[2021-01-25] MEDS: CLONAZEPAM 1MG TAB PO SCH ×2 (08:26→19:46)
[2021-01-25] MEDS: ISOSORBIDE MONO 30MG SR TAB PO SCH (08:26)
[2021-01-25] MEDS: HYDRALAZINE HCL 10 MG TABLET PO SCH ×3 (08:26→19:45)
[2021-01-25] MEDS: POLYETHYLENE GLYCOL 3350 17 GM POWD.PACK PO SCH (08:26)
[2021-01-25] MEDS: SEVELAMER HCL 800 MG TABLET PO SCH ×3 (08:26→17:31)
[2021-01-25] MEDS: THIAMINE HCL 100 MG TABLET PO SCH ×2 (08:27→19:46)
[2021-01-25] MEDS: ASPIRIN 81 MG EC TAB PO SCH (08:27)
[2021-01-25] MEDS: SENNOSIDES 8.6 MG TABLET PO SCH (08:27)
[2021-01-25] MEDS: BALSAM PERU/CASTOR OIL 60 GM TUBE TP SCH ×2 (08:27→19:47)
[2021-01-25] MEDS: PANTOPRAZOLE 40 MG TAB DR PO SCH (08:27)
[2021-01-25] MEDS: RISPERIDONE 1 MG TABLET PO SCH ×2 (08:27→19:45)
[2021-01-25] MEDS: DOCUSATE SODIUM 100 MG CAP PO SCH (08:27)
[2021-01-25] MEDS ORDERED: HYDROXYZINE 25 MG TABLET ONE (19:19)
[2021-01-25] MEDS: ATORVASTATIN 40 MG TABLET PO SCH (19:46)
[2021-01-25] MEDS: HYDROXYZINE 25 MG TABLET PO SCH (19:46)
[2021-01-26] MEDS: HEPARIN 5,000 UNIT VIAL SQ SCH ×3 (00:38→17:00)
[2021-01-26 04:00] VITALS: BP 114/64
[2021-01-26] MEDS: PANTOPRAZOLE 40 MG TAB DR PO SCH (05:49)
[2021-01-26 08:00] VITALS: BP 123/68
[2021-01-26] MEDS: THIAMINE HCL 100 MG TABLET PO SCH ×2 (08:17→20:27)
[2021-01-26] MEDS: CLONAZEPAM 1MG TAB PO SCH ×2 (08:18→20:27)
[2021-01-26] MEDS: HYDRALAZINE HCL 10 MG TABLET PO SCH ×3 (08:18→20:27)
[2021-01-26] MEDS: ISOSORBIDE MONO 30MG SR TAB PO SCH (08:18)
[2021-01-26] MEDS: RISPERIDONE 1 MG TABLET PO SCH ×2 (08:18→20:27)
[2021-01-26] MEDS: SENNOSIDES 8.6 MG TABLET PO SCH (08:19)
[2021-01-26] MEDS: SEVELAMER HCL 800 MG TABLET PO SCH ×3 (08:19→17:00)
[2021-01-26] MEDS: DOCUSATE SODIUM 100 MG CAP PO SCH (08:19)
[2021-01-26] MEDS: POLYETHYLENE GLYCOL 3350 17 GM POWD.PACK PO SCH (08:19)
[2021-01-26] MEDS: ASPIRIN 81 MG EC TAB PO SCH (08:19)
[2021-01-26] MEDS: HYDROXYZINE 25 MG TABLET PO SCH ×2 (08:19→20:27)
[2021-01-26] MEDS: BALSAM PERU/CASTOR OIL 60 GM TUBE TP SCH ×2 (08:20→20:28)
[2021-01-26 12:05] VITALS: BP 124/72
[2021-01-26 15:46] VITALS: BP 113/59
[2021-01-26 19:20] VITALS: BP 116/70
[2021-01-26] MEDS: ATORVASTATIN 40 MG TABLET PO SCH (20:27)
[2021-01-27] VITALS: BP 119/74
[2021-01-27] MEDS: HEPARIN 5,000 UNIT VIAL SQ SCH ×3 (01:00→16:52)
[2021-01-27 04:00] VITALS: BP 109/74
[2021-01-27 04:18] LABS: BASOPHILS % (AUTO) 0.6 % (0.0-5.0); HEMATOCRIT 32.4 % (42-54); MEAN CORPUSCULAR HEMOGLOBIN 27.2 pg (27.0-33.0); MEAN CORPUSCULAR HGB CONC 30.6 g/dL (32.0-36.0); PLATELET COUNT (AUTO) 175 K/uL (130-400); RED BLOOD CELL COUNT(AUTO) 3.64 MIL/uL (4.50-6.20); WHITE BLOOD COUNT (AUTO) 10.2 K/uL (4.8-10.8)
[2021-01-27 04:55] LABS: POTASSIUM 6.5 mmol/L (3.5-5.1)
[2021-01-27 04:56] LABS: CREATININE 20.9 mg/dL (0.5-1.5)
[2021-01-27] MEDS ORDERED: KAYEXALATE 15GM/60ML PO SCH (07:30)
[2021-01-27 08:03] VITALS: BP 113/68
[2021-01-27] MEDS: SENNOSIDES 8.6 MG TABLET PO SCH (09:00)
[2021-01-27] MEDS: POLYETHYLENE GLYCOL 3350 17 GM POWD.PACK PO SCH (09:00)
[2021-01-27] MEDS: DOCUSATE SODIUM 100 MG CAP PO SCH (09:00)
[2021-01-27] MEDS: HYDROXYZINE 25 MG TABLET PO SCH ×2 (10:12→21:31)
[2021-01-27] MEDS: RISPERIDONE 1 MG TABLET PO SCH ×2 (10:12→21:31)
[2021-01-27] MEDS: ISOSORBIDE MONO 30MG SR TAB PO SCH (10:13)
[2021-01-27] MEDS: BALSAM PERU/CASTOR OIL 60 GM TUBE TP SCH ×2 (10:15→21:32)
[2021-01-27] MEDS: CLONAZEPAM 1MG TAB PO SCH ×2 (10:19→21:32)
[2021-01-27] MEDS: ASPIRIN 81 MG EC TAB PO SCH (10:19)
[2021-01-27] MEDS: SEVELAMER HCL 800 MG TABLET PO SCH ×3 (10:19→16:51)
[2021-01-27] MEDS: PANTOPRAZOLE 40 MG TAB DR PO SCH (10:19)
[2021-01-27] MEDS: HYDRALAZINE HCL 10 MG TABLET PO SCH ×3 (10:21→21:32)
[2021-01-27] MEDS: THIAMINE HCL 100 MG TABLET PO SCH ×2 (10:21→21:31)
[2021-01-27 11:50] VITALS: BP 113/71
[2021-01-27 16:00] VITALS: BP 115/64
[2021-01-27] MEDS: ATORVASTATIN 40 MG TABLET PO SCH (21:32)
[2021-01-27 21:38] VITALS: BP 123/85
[2021-01-28] VITALS (7 sets, daily range): BP systolic 108–135; BP diastolic 54–77
[2021-01-28] MEDS: HEPARIN 5,000 UNIT VIAL SQ SCH ×3 (01:23→16:41)
[2021-01-28] MEDS: PANTOPRAZOLE 40 MG TAB DR PO SCH (06:24)
[2021-01-28] MEDS: SEVELAMER HCL 800 MG TABLET PO SCH ×3 (08:00→16:41)
[2021-01-28] MEDS: ISOSORBIDE MONO 30MG SR TAB PO SCH (10:45)
[2021-01-28] MEDS: HYDROXYZINE 25 MG TABLET PO SCH ×2 (10:45→20:14)
[2021-01-28] MEDS: DOCUSATE SODIUM 100 MG CAP PO SCH (10:46)
[2021-01-28] MEDS: RISPERIDONE 1 MG TABLET PO SCH ×2 (10:46→20:14)
[2021-01-28] MEDS: ASPIRIN 81 MG EC TAB PO SCH (10:46)
[2021-01-28] MEDS: SENNOSIDES 8.6 MG TABLET PO SCH (10:46)
[2021-01-28] MEDS: BALSAM PERU/CASTOR OIL 60 GM TUBE TP SCH ×2 (10:47→20:15)
[2021-01-28] MEDS: POLYETHYLENE GLYCOL 3350 17 GM POWD.PACK PO SCH (10:47)
[2021-01-28] MEDS: HYDRALAZINE HCL 10 MG TABLET PO SCH ×3 (10:50→20:14)
[2021-01-28] MEDS: THIAMINE HCL 100 MG TABLET PO SCH ×2 (10:50→20:14)
[2021-01-28] MEDS: CLONAZEPAM 1MG TAB PO SCH ×2 (10:51→20:15)
[2021-01-28] MEDS: ATORVASTATIN 40 MG TABLET PO SCH (20:14)
[2021-01-29] MEDS: HALOPERIDOL INJ 5 MG/ML VIAL IM PRN (00:43)
[2021-01-29] MEDS: HEPARIN 5,000 UNIT VIAL SQ SCH ×3 (00:44→16:58)
[2021-01-29 08:00] VITALS: BP 108/66
[2021-01-29] MEDS: RISPERIDONE 1 MG TABLET PO SCH ×2 (09:43→20:19)
[2021-01-29] MEDS: POLYETHYLENE GLYCOL 3350 17 GM POWD.PACK PO SCH (09:43)
[2021-01-29] MEDS: ISOSORBIDE MONO 30MG SR TAB PO SCH (09:44)
[2021-01-29] MEDS: SENNOSIDES 8.6 MG TABLET PO SCH (09:44)
[2021-01-29] MEDS: BALSAM PERU/CASTOR OIL 60 GM TUBE TP SCH ×2 (09:45→20:24)
[2021-01-29] MEDS: ASPIRIN 81 MG EC TAB PO SCH (09:46)
[2021-01-29] MEDS: CLONAZEPAM 1MG TAB PO SCH ×2 (09:46→20:19)
[2021-01-29] MEDS: THIAMINE HCL 100 MG TABLET PO SCH ×2 (09:46→20:19)
[2021-01-29] MEDS: DOCUSATE SODIUM 100 MG CAP PO SCH (09:46)
[2021-01-29] MEDS: HYDRALAZINE HCL 10 MG TABLET PO SCH ×3 (09:48→20:19)
[2021-01-29] MEDS: HYDROXYZINE 25 MG TABLET PO SCH ×2 (09:49→20:24)
[2021-01-29] MEDS: PANTOPRAZOLE 40 MG TAB DR PO SCH (09:51)
[2021-01-29] MEDS: SEVELAMER HCL 800 MG TABLET PO SCH ×3 (09:51→16:54)
[2021-01-29 12:00] VITALS: BP 106/57
[2021-01-29 16:01] VITALS: BP 105/66
[2021-01-29 20:00] VITALS: BP 137/73
[2021-01-29] MEDS: ATORVASTATIN 40 MG TABLET PO SCH (20:19)
[2021-01-30] VITALS: BP 105/58
[2021-01-30] MEDS: HEPARIN 5,000 UNIT VIAL SQ SCH ×3 (00:43→18:42)
[2021-01-30 04:00] VITALS: BP 108/53
[2021-01-30] MEDS: PANTOPRAZOLE 40 MG TAB DR PO SCH (07:30)
[2021-01-30 08:00] VITALS: BP 109/57
[2021-01-30] MEDS: THIAMINE HCL 100 MG TABLET PO SCH ×2 (10:00→20:32)
[2021-01-30] MEDS: SENNOSIDES 8.6 MG TABLET PO SCH (10:10)
[2021-01-30] MEDS: DOCUSATE SODIUM 100 MG CAP PO SCH (10:10)
[2021-01-30] MEDS: CLONAZEPAM 1MG TAB PO SCH ×2 (10:10→20:32)
[2021-01-30] MEDS: HYDRALAZINE HCL 10 MG TABLET PO SCH ×3 (10:10→20:25)
[2021-01-30] MEDS: HYDROXYZINE 25 MG TABLET PO SCH ×2 (10:11→20:32)
[2021-01-30] MEDS: ASPIRIN 81 MG EC TAB PO SCH (10:11)
[2021-01-30] MEDS: ISOSORBIDE MONO 30MG SR TAB PO SCH (10:11)
[2021-01-30] MEDS: RISPERIDONE 1 MG TABLET PO SCH ×2 (10:11→20:32)
[2021-01-30] MEDS: POLYETHYLENE GLYCOL 3350 17 GM POWD.PACK PO SCH (10:12)
[2021-01-30 12:00] VITALS: BP 96/50
[2021-01-30] MEDS: SEVELAMER HCL 800 MG TABLET PO SCH ×2 (12:00→18:44)
[2021-01-30] MEDS: BALSAM PERU/CASTOR OIL 60 GM TUBE TP SCH ×2 (12:39→20:32)
[2021-01-30 16:00] VITALS: BP 108/52
[2021-01-30 20:00] VITALS: BP 105/54
[2021-01-30] MEDS: ATORVASTATIN 40 MG TABLET PO SCH (20:32)
[2021-01-31] VITALS: BP 114/58
[2021-01-31] MEDS: HEPARIN 5,000 UNIT VIAL SQ SCH (01:18)
[2021-01-31 04:00] VITALS: BP 102/59
[2021-01-31 08:00] VITALS: BP 96/53
[2021-01-31] MEDS ORDERED: HYDRALAZINE HCL 10 MG TABLET PO PRN (09:00)
[2021-01-31] MEDS ORDERED: SENNOSIDES 8.6 MG TABLET PO PRN (09:00)
[2021-01-31] MEDS ORDERED: POLYETHYLENE GLYCOL 3350 17 GM POWD.PACK PO PRN (09:00)
[2021-01-31] MEDS: SEVELAMER HCL 800 MG TABLET PO SCH (09:38)
[2021-01-31] MEDS: ISOSORBIDE MONO 30MG SR TAB PO SCH (09:40)
[2021-01-31] MEDS: CLONAZEPAM 1MG TAB PO SCH ×2 (09:40→21:01)
[2021-01-31] MEDS: HYDROXYZINE 25 MG TABLET PO SCH ×2 (09:41→21:01)
[2021-01-31] MEDS: RISPERIDONE 1 MG TABLET PO SCH ×2 (09:41→21:02)
[2021-01-31] MEDS: ASPIRIN 81 MG EC TAB PO SCH (09:41)
[2021-01-31 12:00] VITALS: BP 82/38
[2021-01-31] MEDS: HALOPERIDOL INJ 5 MG/ML VIAL IM PRN (16:42)
[2021-01-31 18:41] VITALS: BP 85/56
[2021-01-31 20:00] VITALS: BP 84/36
[2021-01-31] MEDS: BALSAM PERU/CASTOR OIL 60 GM TUBE TP SCH (21:00)
[2021-01-31] MEDS: THIAMINE HCL 100 MG TABLET PO SCH (21:01)
[2021-01-31] MEDS: ATORVASTATIN 40 MG TABLET PO SCH (21:01)
[2021-02-01] VITALS: BP 98/51
[2021-02-01] MEDS: HEPARIN 5,000 UNIT VIAL SQ SCH (00:57)
[2021-02-01 04:00] VITALS: BP 86/32
[2021-02-01 08:00] VITALS: BP 82/33
[2021-02-01] MEDS: HYDROXYZINE 25 MG TABLET PO SCH (10:42)
[2021-02-01] MEDS: ASPIRIN 81 MG EC TAB PO SCH (10:42)
[2021-02-01] MEDS: CLONAZEPAM 1MG TAB PO SCH (10:43)
[2021-02-01 11:38] VITALS: BP 79/33
== END 2021-02-01 14:48 | DRG 133 ==
LOC: EDH 08:02 → EDHIP 08:03 → UNDOADMIN 08:38 → EDHIP 09:17 → 2CH 09:17 → 2DH 01-18 19:45 → 4CH 01-19 21:07
PROVIDERS: ADMIT Internal Medicine; ATTEND Internal Medicine
PROC: 5A1945Z Respiratory Ventilation, 24-96 Consecutive Hours (ICD-10-PCS; principal; 2021-01-10)
PROC: 5A12012 Performance of Cardiac Output, Single, Manual (ICD-10-PCS; 2021-01-10)
PROC: 0BH17EZ Insertion of Endotracheal Airway into Trachea, Via Natural or Artificial Opening (ICD-10-PCS; 2021-01-10)
PROC: 5A1D70Z Performance of Urinary Filtration, Intermittent, Less than 6 Hours Per Day (ICD-10-PCS; 2021-01-10)
PROC: 02HV33Z Insertion of Infusion Device into Superior Vena Cava, Percutaneous Approach (ICD-10-PCS; 2021-01-10)
PROC: B548ZZA Ultrasonography of Superior Vena Cava, Guidance (ICD-10-PCS; 2021-01-10)
PROC: 5A1D70Z Performance of Urinary Filtration, Intermittent, Less than 6 Hours Per Day (ICD-10-PCS; 2021-01-11)
PROC: 5A1D70Z Performance of Urinary Filtration, Intermittent, Less than 6 Hours Per Day (ICD-10-PCS; 2021-01-12)
PROC: 5A1D70Z Performance of Urinary Filtration, Intermittent, Less than 6 Hours Per Day (ICD-10-PCS; 2021-01-14)
PROC: 5A1D70Z Performance of Urinary Filtration, Intermittent, Less than 6 Hours Per Day (ICD-10-PCS; 2021-01-16)
PROC: 5A1D70Z Performance of Urinary Filtration, Intermittent, Less than 6 Hours Per Day (ICD-10-PCS; 2021-01-20)
DX: J96.02 Acute respiratory failure with hypercapnia (principal); I46.9 Cardiac arrest, cause unspecified; K72.00 Acute and subacute hepatic failure without coma; R57.0 Cardiogenic shock; N18.6 End stage renal disease; E87.4 Mixed disorder of acid-base balance; I47.2 Ventricular tachycardia; G93.1 Anoxic brain damage, not elsewhere classified; I42.9 Cardiomyopathy, unspecified; E87.5 Hyperkalemia; M62.82 Rhabdomyolysis; I13.2 Hypertensive heart and chronic kidney disease with heart failure and with stage 5 chronic kidney disease, or end stage renal disease; G93.41 Metabolic encephalopathy; E11.22 Type 2 diabetes mellitus with diabetic chronic kidney disease; E11.649 Type 2 diabetes mellitus with hypoglycemia without coma; Z68.39 Body mass index [BMI] 39.0-39.9, adult; E66.9 Obesity, unspecified; Z20.822 Contact with and (suspected) exposure to COVID-19; Z66 Do not resuscitate; E78.5 Hyperlipidemia, unspecified; F14.10 Cocaine abuse, uncomplicated; F20.9 Schizophrenia, unspecified; I50.23 Acute on chronic systolic (congestive) heart failure; T46.2X5A Adverse effect of other antidysrhythmic drugs, initial encounter; E11.610 Type 2 diabetes mellitus with diabetic neuropathic arthropathy; D63.1 Anemia in chronic kidney disease; Z99.2 Dependence on renal dialysis; Z51.5 Encounter for palliative care; Z78.1 Physical restraint status; Z91.15 Patient's noncompliance with renal dialysis; Z91.14 Patient's other noncompliance with medication regimen; Z91.19 Patient's noncompliance with other medical treatment and regimen; Y92.89 Other specified places as the place of occurrence of the external cause
CPT/HCPCS: 36415; 36600; 70450; 71045; 73620; 74018; 80048; 80053; 80305; 80307; 81001; 82140; 82435; 82550; 82803; 82947; 82948; 83605; 83690; 83735; 83874; 83880; 84100; 84132; 84145; 84295; 84439; 84443; 84481; 84484; 85018; 85025; 85610; 85730; 86701; 86704; 86706; 86804; 87040; 87088; 87340; 87390; 87522; 87635; 90935; 92610; 93005; 93306; 93356; 94002; 94003; 94640; 97039; 99291; C9113; G0378; J0282; J1630; J1644; J1815; J2060; J2543; J2704; J2765; J3010; J3370; J3490; J7030; J7050; J7060; J7070; J7131